=== PATIENT | female | born 1960 | race Caucasian/White ===

== ENCOUNTER → 2016-04-24 | Outpatient (CLI) | payer OTHER ==
[~2016-04-24] MED LIST: FERR325T; TAMO20TA; VICO5TAB; [UNRECOGNIZED DRUG - OTHER]
[2016-04-24 09:10] LABS: ALBUMIN 3.9 GM/DL (3.2-5.2); ALBUMIN/GLOBULIN RATIO 0.95 (1.00-1.93); ALKALINE PHOSPHATASE 118 U/L (45-117); ALT/SGPT 24 U/L (12-78); ANION GAP 7 MEQ/L (8-16); AST/SGOT 14 U/L (15-37); BILIRUBIN,TOTAL 0.5 MG/DL (0.2-1.0); BLOOD UREA NITROGEN 17 MG/DL (7-18); CALCIUM LEVEL 9.3 MG/DL (8.5-10.1); CARBON DIOXIDE LEVEL 30 MEQ/L (21-32); CHLORIDE LEVEL 106 MEQ/L (98-107); CHOLESTEROL LEVEL 179 MG/DL (<200); CREATININE FOR GFR 0.88 MG/DL (0.55-1.02); GLOMERULAR FILTRATION RATE > 60.0 (>51); GLUCOSE, FASTING 97 MG/DL (70-105); POTASSIUM SERUM 4.5 MEQ/L (3.5-5.1); SODIUM LEVEL 143 MEQ/L (136-145); TRIGLYCERIDES LEVEL 151 MG/DL (<150)
== END ==
LOC: M LAB 08:30
PROVIDERS: ATTEND Emergency Medicine
DX: I10 Essential (primary) hypertension (principal); E55.9 Vitamin D deficiency, unspecified

== ENCOUNTER → 2016-10-09 | Outpatient (REF) | payer OTHER | LOC: M LAB REF 16:36 | PROVIDERS: ATTEND Surgery | DX: D48.5 Neoplasm of uncertain behavior of skin (principal) ==

== ENCOUNTER → 2017-04-26 | Outpatient (CLI) | payer OTHER ==
[2017-04-26 13:40] LABS: ALBUMIN 4.2 GM/DL (3.2-5.2); ALBUMIN/GLOBULIN RATIO 1.02 (1.00-1.93); ALKALINE PHOSPHATASE 110 U/L (45-117); ALT/SGPT 35 U/L (12-78); ANION GAP 6 MEQ/L (8-16); AST/SGOT 22 U/L (7-37); BILIRUBIN,TOTAL 0.5 MG/DL (0.2-1.0); BLOOD UREA NITROGEN 15 MG/DL (7-18); CARBON DIOXIDE LEVEL 30 MEQ/L (21-32); CHLORIDE LEVEL 104 MEQ/L (98-107); CHOLESTEROL LEVEL 212 MG/DL (<200); CHOLESTEROL RISK RATIO 4.326 (<5); CREATININE FOR GFR 0.81 MG/DL (0.55-1.02); GLOMERULAR FILTRATION RATE > 60.0 (>51); GLUCOSE, FASTING 104 MG/DL (70-105); HDL CHOLESTEROL 49 MG/DL (>40); NON-HDL-C 163 MG/DL; POTASSIUM SERUM 4.2 MEQ/L (3.5-5.1); SODIUM LEVEL 140 MEQ/L (136-145); TOTAL PROTEIN 8.3 GM/DL (6.4-8.2); TRIGLYCERIDES LEVEL 165 MG/DL (<150)
[2017-04-26 13:44] LABS: TOTAL 25(OH) VITAMIN D 53.3 NG/ML (30.0-100.0)
== END ==
LOC: M SMT 09:24
DX: E55.9 Vitamin D deficiency, unspecified (principal); I10 Essential (primary) hypertension

== ENCOUNTER → 2018-04-28 | Outpatient (CLI) | payer OTHER ==
[2018-04-28 12:57] LABS: ALBUMIN 3.9 GM/DL (3.2-5.2); ALT/SGPT 28 U/L (12-78); BILIRUBIN,TOTAL 0.5 MG/DL (0.2-1.0); BLOOD UREA NITROGEN 13 MG/DL (7-18); CALCIUM LEVEL 9.3 MG/DL (8.5-10.1); CARBON DIOXIDE LEVEL 29 MEQ/L (21-32); CHLORIDE LEVEL 102 MEQ/L (98-107); CHOLESTEROL LEVEL 197 MG/DL (<200); CREATININE FOR GFR 0.84 MG/DL (0.55-1.30); GLOMERULAR FILTRATION RATE > 60.0 (>51); GLUCOSE, FASTING 99 MG/DL (70-100); HDL CHOLESTEROL 42 MG/DL (>40); LDL CHOLESTEROL 116 MG/DL (<100); NON-HDL-C 155 MG/DL; POTASSIUM SERUM 4.7 MEQ/L (3.5-5.1); SODIUM LEVEL 139 MEQ/L (136-145); TOTAL 25(OH) VITAMIN D 62.8 NG/ML (30.0-100.0); TOTAL PROTEIN 8.1 GM/DL (6.4-8.2); TRIGLYCERIDES LEVEL 193 MG/DL (<150)
== END ==
LOC: M LAB 09:18
PROVIDERS: ATTEND Emergency Medicine
DX: I10 Essential (primary) hypertension (principal); E55.9 Vitamin D deficiency, unspecified

== ENCOUNTER 2018-10-31 06:28 | Day surgery (SDC) | payer OTHER ==
[~2018-10-31] VITALS: Ht 172.7 cm; Wt 104.3 kg
[~2018-10-31 06:28] MED LIST changes: +CALTCHW5 PO; +LISI10TA2 PO; +MULTCAP PO; -TAMO20TA; +TAMO20TA44; +VITA50005 PO
[2018-10-31] MEDS ORDERED: NS 1,000 ML IV ONE (07:00)
[2018-10-31] MEDS ORDERED: PROPOFOL 500 MG/50 ML VIAL As Ordered ONE (07:35)
[2018-10-31] MEDS ORDERED: LIDOCAINE 2% INJ 100 MG/5 ML SDV (FOR ANES.) As Ordered ONE (07:35)
--- NOTE | 2018-10-31 07:55 | ROOR ---
Patient Name: Anh Levine Procedure Date: 10/31/2018 7:35 AM Date of : 1960 Age: 57 Room: [facility] Gender: Female Note Status: Finalized Procedure: Colonoscopy Indications: High risk colon cancer surveillance: Personal history of colonic polyps, Family history of colon cancer Providers: Edward ARVIZU MD Referring MD: BETY Pham Requesting Provider: Medicines: Monitored Anesthesia Care Complications: No immediate complications. Procedure: Pre-Anesthesia Assessment: - The heart rate, respiratory rate, oxygen saturations, blood pressure, adequacy of pulmonary ventilation, and response to care were monitored throughout the procedure. The Colonoscope was introduced through the anus and advanced to the cecum, identified by appendiceal orifice and ileocecal valve. The colonoscopy was somewhat difficult due to inadequate bowel prep. The patient tolerated the procedure well. The quality of the bowel preparation was poor. Findings: The perianal and digital rectal examinations were normal. A 4 mm polyp was found in the cecum. The polyp was sessile. The polyp was removed with a cold snare. Resection and retrieval were complete. (Colon Prep was POOR, Inadequate Visualisation) Impression: - (Colon Prep was POOR, Inadequate Visualisation) - One 4 mm polyp in the cecum, removed with a cold snare. Resected and retrieved. Recommendation: - Repeat colonoscopy at the next available appointment because the bowel preparation was suboptimal. - My office will call you within the next few days to reschedule a colonoscopy with alternate colon preparation. Edward Arvizu MD Edward ARVIZU MD 10/31/2018 7:55:17 AM Electronically signed by Edward ARVIZU MD Number of Addenda: 0 Note Initiated On: 10/31/2018 7:35 AM Estimated Blood Loss: Estimated blood loss: none.
[2018-10-31 08:11] VITALS: BP 163/89
[2018-10-31] MEDS ORDERED: EPINEPHrine INJ 1 MG/ML 1ML AMP As Ordered ONE (13:02)
[2018-10-31] MEDS ORDERED: ceFAZolin 1GM INJ (J0690 PER 500MG) As Ordered ONE (13:02)
== END 2018-10-31 08:11 | disposition home or self-care (01) ==
LOC: M OPP 06:28
PROVIDERS: ATTEND Internal Medicine Gastroenterology
DX: D12.0 Benign neoplasm of cecum (principal); Z79.899 Other long term (current) drug therapy; Z12.11 Encounter for screening for malignant neoplasm of colon; Z86.010 Personal history of colon polyps; Z80.0 Family history of malignant neoplasm of digestive organs
CPT/HCPCS: 45385; 88305; J0690

== ENCOUNTER 2019-02-24 07:12 | Day surgery (SDC) | payer OTHER ==
[~2019-02-24] VITALS: Ht 172.7 cm; Wt 98.4 kg
[~2019-02-24 07:12] MED LIST changes: +LISI10TA15 PO; -LISI10TA2 PO
[2019-02-24] MEDS ORDERED: NS 1,000 ML IV ONE (08:15)
[2019-02-24] MEDS ORDERED: PROPOFOL 200 MG/20 ML VIAL As Ordered ONE ×2 (09:28→09:50)
[2019-02-24] MEDS ORDERED: LIDOCAINE 2% INJ 100 MG/5 ML SDV (FOR ANES.) As Ordered ONE (09:28)
--- NOTE | 2019-02-24 09:59 | ROOR ---
Patient Name: Anh Levine Procedure Date: 02/24/2019 9:14 AM Date of : 1960 Age: 58 Room: [facility] Gender: Female Note Status: Finalized Procedure: Colonoscopy Indications: High risk colon cancer surveillance: Personal history of colonic polyps Providers: Edward ARVIZU MD Referring MD: BETY Lopez Requesting Provider: Medicines: Monitored Anesthesia Care Complications: No immediate complications. Procedure: Pre-Anesthesia Assessment: - The heart rate, respiratory rate, oxygen saturations, blood pressure, adequacy of pulmonary ventilation, and response to care were monitored throughout the procedure. The Colonoscope was introduced through the anus and advanced to the terminal ileum, with identification of the appendiceal orifice and IC valve. The colonoscopy was performed without difficulty. The patient tolerated the procedure well. The quality of the bowel preparation was good. Findings: The perianal and digital rectal examinations were normal. A 6 mm polyp was found in the rim of the appendiceal orifice. The polyp was flat. The polyp was removed with a piecemeal technique using a cold snare. Resection and retrieval were complete. The exam was otherwise without abnormality on direct and retroflexion views. Impression: - One 6 mm polyp at the rim of the appendiceal orifice, removed piecemeal using a cold snare. Resected and retrieved. - The examination was otherwise normal on direct and retroflexion views. Recommendation: - Repeat colonoscopy in 3 years for surveillance. (piecemeal/difficult location) Edward Arvizu MD Edward ARVIZU MD 02/24/2019 9:59:23 AM Electronically signed by Edward ARVIZU MD Number of Addenda: 0 Note Initiated On: 02/24/2019 9:14 AM Estimated Blood Loss: Estimated blood loss: none.
[2019-02-24 10:15] VITALS: BP 163/67
== END 2019-02-24 10:29 | disposition home or self-care (01) ==
LOC: M OPP 07:12
PROVIDERS: ATTEND Internal Medicine Gastroenterology
DX: Z12.11 Encounter for screening for malignant neoplasm of colon (principal); Z86.010 Personal history of colon polyps; Z80.0 Family history of malignant neoplasm of digestive organs; D12.1 Benign neoplasm of appendix; Z79.899 Other long term (current) drug therapy; Z85.3 Personal history of malignant neoplasm of breast; Z91.89 Other specified personal risk factors, not elsewhere classified; Z92.3 Personal history of irradiation

== ENCOUNTER → 2019-04-13 | Outpatient (CLI) | payer OTHER ==
[2019-04-13 10:57] LABS: BASO # 0.1 10^3/uL (0.0-0.2); BASO % 0.9 % (0.0-1.0); EOS # 0.2 10^3/uL (0.0-0.5); EOS % 2.6 % (0.0-3.0); HEMATOCRIT 41.6 % (36.0-47.0); HEMOGLOBIN 13.6 g/dl (12.0-15.5); LYMPH # 2.7 10^3/uL (1.5-5.0); MEAN CORPUSCULAR HEMOGLOBIN 29.2 pg (27.0-33.0); MEAN CORPUSCULAR HGB CONC 32.7 g/dl (32.0-36.5); MEAN CORPUSCULAR VOLUME 89.3 fl (80.0-96.0); MONO # 0.4 10^3/uL (0.0-0.8); MONO % 7.2 % (0.0-5.0); NEUTROPHILS # 2.4 10^3/uL (1.5-8.5); NEUTROPHILS % 42.1 % (36.0-66.0); PLATELET COUNT, AUTOMATED 338 10^3/uL (150-450); RED BLOOD COUNT 4.66 10^6/uL (4.00-5.40); WHITE BLOOD COUNT 5.7 10^3/uL (4.0-10.0)
[2019-04-13 11:20] LABS: HEMOGLOBIN A1c 6.1 %
[2019-04-13 11:40] LABS: ALBUMIN 3.9 GM/DL (3.2-5.2); ALT/SGPT 35 U/L (12-78); BILIRUBIN,TOTAL 0.4 MG/DL (0.2-1.0); BLOOD UREA NITROGEN 15 MG/DL (7-18); CALCIUM LEVEL 9.2 MG/DL (8.5-10.1); CARBON DIOXIDE LEVEL 25 MEQ/L (21-32); CHLORIDE LEVEL 104 MEQ/L (98-107); CHOLESTEROL LEVEL 189 MG/DL (<200); CHOLESTEROL RISK RATIO 4.395 (<5); CREATININE FOR GFR 0.78 MG/DL (0.55-1.30); FREE T4 0.97 NG/DL (0.76-1.46); GLOMERULAR FILTRATION RATE > 60.0 (>51); GLUCOSE, FASTING 89 MG/DL (70-100); HDL CHOLESTEROL 43 MG/DL (>40); LDL CHOLESTEROL 123 MG/DL (<100); NON-HDL-C 146 MG/DL; POTASSIUM SERUM 4.5 MEQ/L (3.5-5.1); SODIUM LEVEL 139 MEQ/L (136-145); TOTAL PROTEIN 7.9 GM/DL (6.4-8.2); TRIGLYCERIDES LEVEL 113 MG/DL (<150)
== END ==
LOC: M LAB 10:23
PROVIDERS: ATTEND Family Medicine
DX: Z13.220 Encounter for screening for lipoid disorders (principal); Z13.29 Encounter for screening for other suspected endocrine disorder

== ENCOUNTER → 2019-06-25 | Outpatient (CLI) | payer OTHER ==
[2019-06-25 08:43] LABS: ALBUMIN 4.2 GM/DL (3.2-5.2); ALT/SGPT 30 U/L (12-78); BILIRUBIN,TOTAL 0.4 MG/DL (0.2-1.0); BLOOD UREA NITROGEN 15 MG/DL (7-18); CALCIUM LEVEL 9.6 MG/DL (8.5-10.1); CARBON DIOXIDE LEVEL 29 MEQ/L (21-32); CHLORIDE LEVEL 104 MEQ/L (98-107); CHOLESTEROL LEVEL 188 MG/DL (<200); CHOLESTEROL RISK RATIO 4.476 (<5); GLOMERULAR FILTRATION RATE > 60.0 (>51); GLUCOSE, FASTING 97 MG/DL (70-100); HDL CHOLESTEROL 42 MG/DL (>40); LDL CHOLESTEROL 116 MG/DL (<100); NON-HDL-C 146 MG/DL; POTASSIUM SERUM 4.5 MEQ/L (3.5-5.1); SODIUM LEVEL 138 MEQ/L (136-145); TRIGLYCERIDES LEVEL 148 MG/DL (<150)
[2019-06-25 11:59] LABS: HEMOGLOBIN A1c 5.9 %
== END ==
LOC: M LAB 07:29
PROVIDERS: ATTEND Physician Assistant
DX: R73.03 Prediabetes (principal); Z13.220 Encounter for screening for lipoid disorders

== ENCOUNTER 2019-10-22 18:28 | Inpatient (IN) | payer OTHER ==
[~2019-10-22] VITALS: Ht 172.7 cm; Wt 99.5 kg
[2019-10-22] MEDS ORDERED: methylPREDNISolone INJ 125 MG/2 ML VIAL (J2930) IV ONE (19:15)
[2019-10-22] MEDS ORDERED: ACETAMINOPHEN 325 MG TAB PO ONE (19:15)
[2019-10-22] MEDS ORDERED: NS 1,000 ML IV ONE ×3 (19:15→20:15)
[2019-10-22] MEDS ORDERED: METOCLOPRAMIDE INJ 10MG/2ML VIAL (J2765 PER 1) IV ONE (19:15)
[2019-10-22 20:03] LABS: BASO % 0.2 % (0.0-1.0); EOS % 0.2 % (0.0-3.0); HEMATOCRIT 39.9 % (36.0-47.0); HEMOGLOBIN 13.6 g/dl (12.0-15.5); LYMPH # 0.6 10^3/uL (1.5-5.0); LYMPH % 3.5 % (24.0-44.0); MEAN CORPUSCULAR HEMOGLOBIN 29.2 pg (27.0-33.0); MEAN CORPUSCULAR HGB CONC 34.1 g/dl (32.0-36.5); MEAN CORPUSCULAR VOLUME 85.8 fl (80.0-96.0); MONO # 0.4 10^3/uL (0.0-0.8); MONO % 2.3 % (0.0-5.0); NEUTROPHILS # 16.4 10^3/uL (1.5-8.5); PLATELET COUNT, AUTOMATED 309 10^3/uL (150-450); RED BLOOD COUNT 4.65 10^6/uL (4.00-5.40); WHITE BLOOD COUNT 17.6 10^3/uL (4.0-10.0)
--- NOTE | 2019-10-22 20:04 | REP ---
Clinical: Sepsis/shock . Comparison: 08/11/2008 Findings: The mediastinum and cardiac silhouette are stable and within normal limits for portable technique. The lung nagy are clear without acute consolidation, effusion, or pneumothorax. Skeletal structures are intact. Impression: No acute cardiopulmonary process appreciated. Electronically Signed by Germán Jeffries MD 10/22/2019 07:56 P
[2019-10-22 20:25] LABS: INR 1.07; PARTIAL THROMBOPLASTIN TIME 27.7 SECONDS (25.0-38.4); PROTHROMBIN TIME 13.6 SECONDS (11.8-14.0)
[2019-10-22 20:26] LABS: ALBUMIN 3.7 GM/DL (3.2-5.2); ALT/SGPT 41 U/L (12-78); AMYLASE 25 U/L (25-115); BILIRUBIN,DIRECT < 0.1 MG/DL (0.0-0.2); BILIRUBIN,TOTAL 0.8 MG/DL (0.2-1.0); BLOOD UREA NITROGEN 15 MG/DL (7-18); C REACTIVE PROTEIN QUANTITATIV 2.42 MG/DL (0.00-0.30); CALCIUM LEVEL 9.6 MG/DL (8.5-10.1); CARBON DIOXIDE LEVEL 23 MEQ/L (21-32); CHLORIDE LEVEL 101 MEQ/L (98-107); CREATININE FOR GFR 1.02 MG/DL (0.55-1.30); GLUCOSE, FASTING 114 MG/DL (70-100); SODIUM LEVEL 136 MEQ/L (136-145); TOTAL PROTEIN 7.9 GM/DL (6.4-8.2)
[2019-10-22] MEDS ORDERED: PIPERACILLIN/TAZOBACTAM SOD 3.375 GM in D5W MINI-BAG PLUS 50 ML IV ONE (20:45)
[2019-10-22] MEDS ORDERED: MAALOX 30 ML SUSP *UDC PO PRN (21:00)
[2019-10-22] MEDS ORDERED: MOM 30ML SUSPENSION UDC PO PRN (21:00)
--- NOTE | 2019-10-22 21:02 | HPEPDOC ---
[facility] Medical History & Physical Date of Admission Oct 22, 2019 Date of Service: Oct 22, 2019 Primary Care Physician: MERT SERNA PA-C Attending Physician: EDIN PARADA MD History and Physical TIME OF SERVICE: 9:10 PM CHIEF COMPLAINT: Rash, headache, soreness HISTORY OF PRESENT ILLNESS: This is a 58-year-old female who presents with complaints of a headache and neck soreness that began this afternoon; shortly thereafter she really developed rash at the right upper arm, the back of her neck, and her upper chest. She thought it was shingles which she's had in the past, so she decided come to the hospital for evaluation. She denies being out in the sun, using new skin care products, new laundry detergents or eating new foods. She also denies sweating profusely, denies having nausea or vomiting, denies having diarrhea, eyes, having chest pain,, denies having shortness of breath, denies having abdominal pain, denies having pain with urination, and denies having back pain or joint pain. She does admit to feeling weak and having chills. REVIEW OF SYSTEMS: 12 point review of systems negative except as listed in HPI PAST MEDICAL/ SURGICAL HISTORY: History of ER positive, HER-2/gary positive stage III breast cancer, status post double mastectomy; she completed neoadjuvant tamoxifen and anastrozole and Herceptin Chronic hypertension Shingles in April 2019 History of dysfunctional uterine bleeding and ovarian cyst, status post total laparoscopic hysterectomy and BSO She denies being diabetic SOCIAL HISTORY: She doesn't smoke, drink alcohol or use recreational drugs FAMILY HISTORY: Leukemia Esophageal cancer Breast cancer Thyroid cancer Prostate cancer CVD Chronic HTN ALLERGIES: Please see below. HOME MEDICATIONS: Please see below. PHYSICAL EXAMINATION: Vital Signs Date Time Temp Pulse Resp B/P (MAP) Pulse Ox O2 Delivery O2 Flow Rate FiO2 10/22/19 18:28 100.3 138 16 129/91 (104) 95 Room Air GEN: well-nourished / well developed/ NAD INTEGUMENT: Her face is slightly flushed, there is redness extending around the perimeter of the neck/she has slightly raised, warm, large red patches on the right upper arm and the right upper chest HEENT: NCAT CVS: Tachycardic/NMRG/ no lower extremity edema LUNGS: able to speak full sentences without stopping to take a breath / lungs are clear to auscultation bilaterally on room air ABDOMEN: Contour ( obese) MSK/EXTREMITIES: range of motion intact in all 4 extremities NEURO: CN 2-12 are grossly intact / speech is not dysarthric PSYCH: alert and oriented to person place and time/ able to understand and follow all commands LABORATORY DATA: 10/22/19 19:15 Immature Granulocyte % (Auto) 0.8, Neutrophils (%) (Auto) 93.0H, Lymphocytes (%) (Auto) 3.5L, Monocytes (%) (Auto) 2.3, Eosinophils (%) (Auto) 0.2, Basophils (%) (Auto) 0.2, Neutrophils # (Auto) 16.4H, Lymphocytes # (Auto) 0.6L, Monocytes # (Auto) 0.4, Eosinophils # (Auto) 0.0, Basophils # (Auto) 0.0, Nucleated Red Blood Cells % (auto) 0.0, Prothrombin Time 13.6, Prothromb Time International Ratio 1.07, Activated Partial Thromboplast Time 27.7, Anion Gap 12, Glomerular Filtration Rate 59.0, Lactic Acid Level 2.8*H, Calcium Level 9.6, Total Bilirubin 0.8, Direct Bilirubin < 0.1, Aspartate Amino Transf (AST/SGOT) 58H, Alanine Aminotransferase (ALT/SGPT) 41, Alkaline Phosphatase 111, C-Reactive Protein, Quantitative 2.42H, Total Protein 7.9, Albumin 3.7, Albumin/Globulin Ratio 0.9L, Amylase Level 25 IMAGING: Chest xray "Impression: No acute cardiopulmonary process appreciated." MICROBIOLOGY: 10/22/19 Blood Culture, Received Pending Respiratory panel pending ASSESSMENT: Ms. Levine is a 58-year-old with a history of hypertension and breast cancer in remission. Will be admitted for evaluation of SIRS associated with headache and rash of unclear cause. PLAN: 1. Rash The rashs is on right upper arm, upper chest and around her neck. The patient thinks that this looks like shingles, but the distribution is not in one specific dermatome. Its less likey DRESS syndrome bc she doesn't have eosinophilia Plan: Admit to PCU / will ask the day time team to consult Dermatology 2. SIRS We don't have a source of infection, but I suspect that this may be related to the rash. SIRS Criteria include: HR >90 / WBC >12 / RR > 20 The lactic acid & CRP are elevated She has non diabetic hyperglycemia She received zosyn and IVF in the ER Plan: initiate Sepsis protocol / trend lactic/ will hold off giving abx until we have a definitive source of infection / c/w IVF /f/u blood cx, UA w Cx, respiratory panel, procalcitonin, VBG, fibrinogen/ Acetaminophen PRN for fever / target MAP at least 65 to 70 / f/u Is and Os with target UOP of at least 0.5 ml/kg/H / target serum glucose 140-180 while acutely ill 3. Headache, neck pain Plan: acetaminophen PRN / pending UA, respiratory panel and blood cx results if KELLY persists will consider LP 4. Mild Transaminitis Possibly 2/2 fatty liver Plan: trend LFTs / f/u Hep panel 5. Chronic hypertension Plan: c/w lisinopril 10 mg daily / switch HTCZ for amlodpine 2.5mg daily 6. Obesity BMI 33.4 complicates care Plan: f/u A1C / the pt can f/u w his or her PCP for STOP BANG questionnaire & area director of home health sales consult / recommend cardiovascular exercise for 40 min 4-5 days a week DVT PROPHYLAXIS: Lovenox DISPOSITION: home after at least 2 midnight's stay Home Medications Scheduled Ergocalciferol (Vitamin D2) (Vitamin D2) 50,000 Unit Cap, 50,000 UNIT PO QWEEK TUES Lisinopril/Hydrochlorothiazide (Lisinopril-Hctz 10-12.5 mg Tab) 1 Tab Tab, 1 TAB PO DAILY Multivitamin (Multivitamins) 1 Cap Cap, 1 CAP PO DAILY Allergies Coded Allergies: No Known Allergies (Unverified , 08/19/18) EDIN PARADA MD Oct 22, 2019 21:02
[2019-10-22 21:19] LABS: APPEARANCE, URINE CLEAR (CLEAR); BACTERIA, URINE AUTO NEGATIVE (NEGATIVE); BILIRUBIN, URINE AUTO NEGATIVE (NEGATIVE); BLOOD, URINE BLOOD 1+ (NEGATIVE); COLOR, URINE YELLOW (YELLOW); GLUCOSE, URINE (UA) AUTO NEGATIVE (NEGATIVE); KETONE, URINE AUTO NEGATIVE (NEGATIVE); LEUKOCYTE ESTERASE, URINE AUTO TRACE (NEGATIVE); NITRITE, URINE AUTO NEGATIVE (NEGATIVE); PROTEIN, URINE AUTO NEGATIVE (NEGATIVE); RBC, URINE AUTO 3 /HPF (0-3); SPECIFIC GRAVITY URINE AUTO 1.013 (1.002-1.035); SQUAMOUS EPITHELIAL CELL UR AU 1 /HPF (0-6); UROBILINOGEN, URINE AUTO 0.2 mg/dL (0.0-2.0); WBC, URINE AUTO 3 /HPF (0-3)
[2019-10-22 21:50] LABS: HEMOGLOBIN A1c 6.3 %
[2019-10-22] MEDS ORDERED: CALTTAB6 PO (22:47)
[2019-10-22] MEDS ORDERED: VITMTA PO (22:47)
[2019-10-22 22:54] VITALS: BP 138/58
[2019-10-22] MEDS: LR 1,000 ML IV SCH (23:29)
[2019-10-23 00:09] LABS: VENOUS BASE EXCESS -2.8 (-2.0-2.0); VENOUS HCO3 20.2 MEQ/L (23.0-27.0); VENOUS O2 SATURATION 99.4 % (60.0-80.0); VENOUS PARTIAL PRESSURE CO2 30.1 mmHg (38.0-50.0); VENOUS PARTIAL PRESSURE O2 164.4 mmHg (30.0-50.0); VENOUS PH 7.444 UNITS (7.330-7.430); VENOUS STANDARD HCO3 22.2 MEQ/L; VENOUS TOTAL CO2 21.1 MEQ/L (24.0-28.0)
--- NOTE | 2019-10-23 00:53 | ECGEPIP ---
[facility] - ED Test Date: 2019-10-22 Pat Name: MALIK WEST Department: Room: - Gender: Female [employer] Det[employer] Operator: : 1960 Requested By: AMY BENNETT Order Number: [id number] Reading MD: Edward Bucio Measurements Intervals [place] Rate: 107 P: 55 VT: 178 QRS: 12 QRSD: 80 T: 16 QT: 312 QTc: 418 Interpretive Statements SINUS TACHYCARDIA Comparison tracing not on file Electronically Signed on 10-23-2019 0:53:09 EDT by Edward Bucio
[2019-10-23 04:00] VITALS: BP_SYST 130; BP_SYST 132; BP_SYST 140; BP_SYST 154; BP_DIAS 60; BP_DIAS 66; BP_DIAS 72
[2019-10-23 04:09] LABS: HEMATOCRIT 36.7 % (36.0-47.0); HEMOGLOBIN 12.3 g/dl (12.0-15.5); MEAN CORPUSCULAR HEMOGLOBIN 28.9 pg (27.0-33.0); MEAN CORPUSCULAR HGB CONC 33.5 g/dl (32.0-36.5); MEAN CORPUSCULAR VOLUME 86.4 fl (80.0-96.0); PLATELET COUNT, AUTOMATED 310 10^3/uL (150-450); RED BLOOD COUNT 4.25 10^6/uL (4.00-5.40); WHITE BLOOD COUNT 25.2 10^3/uL (4.0-10.0)
[2019-10-23 04:45] LABS: ALBUMIN 3.1 GM/DL (3.2-5.2); ALT/SGPT 39 U/L (12-78); BILIRUBIN,TOTAL 0.7 MG/DL (0.2-1.0); BLOOD UREA NITROGEN 13 MG/DL (7-18); CALCIUM LEVEL 8.9 MG/DL (8.5-10.1); CARBON DIOXIDE LEVEL 23 MEQ/L (21-32); CHLORIDE LEVEL 108 MEQ/L (98-107); GLOMERULAR FILTRATION RATE > 60.0 (>51); GLUCOSE, FASTING 189 MG/DL (70-100); MAGNESIUM LEVEL 1.7 MG/DL (1.8-2.4); POTASSIUM SERUM 3.6 MEQ/L (3.5-5.1); SODIUM LEVEL 137 MEQ/L (136-145); TOTAL PROTEIN 6.9 GM/DL (6.4-8.2)
[2019-10-23 08:00] VITALS: BP 128/64
[2019-10-23] MEDS ORDERED: MAG SULF 1GM/100ML (MAG RUN) 1 GM in IV 1 EA IV ONE (08:00)
[2019-10-23 08:18] LABS: HEPATITIS B SURFACE ANTIGEN NEGATIVE (NEGATIVE)
[2019-10-23] MEDS: ENOXAPARIN 40MG/0.4ML SYRINGE (J1650 PER 10MG) SC SCH (08:28)
[2019-10-23] MEDS: lisinopriL 10 MG TAB PO SCH (08:30)
[2019-10-23 08:46] LABS: HEPATITIS B CORE ANTIBODY IGM NEGATIVE (NEGATIVE); HEPATITIS C VIRUS ABY INDEX 0.1 INDEX (<0.8)
[2019-10-23 08:48] LABS: HEPATITIS A ANTIBODY IGM NEGATIVE (NEGATIVE)
[2019-10-23 12:00] VITALS: BP 132/59
[2019-10-23] MEDS: diphenhydrAMINE 25MG CAP PO SCH ×3 (12:12→23:31)
--- NOTE | 2019-10-23 13:14 | IPNPDOC ---
Text Note Date of Service The patient was seen on 10/23/19. NOTE Ms. Levine was seen today at bedside and reported minimal improvement in her sy mptoms overnight. She states that her rash seems to have spread distally on her R arm but otherwise has not changed. She states that she still fells fatigued, with a achy pain down her entire R arm where the rash is present. She rates the pain at a 5/10. She is still eating well and has been able to have a bowel movement and urinate since her admission with no problems. Physical Exam: Vitals: See Below General: Obese women laying in bed in moderate distress HEENT: Diffuse erythematous rash noted throughout face with periorbital sparing. No sparing of the NL folds. Good dentition, no lymphadenopathy, EOMI Respiratory: Lungs CTA B/L with no wheezing, rales or rhonchi CV: RRR with no murmurs, rubs, gallops. +S1 and S2 noted. No JVD noted Abdomen: Obese abdomen. Soft and nontender. No organomegaly or abdominal briuising noted Skin: Diffuse flat, maculopapular rash noted on face, R arm, R torso, and R shoulder with areas of widespread confluence and scattered pustules. Extremities: R arm with rash as noted previously. Palpable and equal pulses in all 4 extremities. No edema noted in LE B/L. Capillary refill <3 s. Assessment and Plan: This is a 58 year old female with a pmhx significant for Stage 3 brease cancer in remission s/p double mastectomy with adjuvent chemotherapy and radiation treatments ending in 2014 who presents with acute onset lethargy and fatigue, body aches, R arm and nexk swelling and diffuse maculopapular rash on her face, right arm and right torso and was found to have leukocytosis with neutrophilia, elevated CRP, and negative respiratory virus panel, CXR, and U/A. #Maculopapular rash on face, right arm, and right torso -Discussed case with dermatology who suspects systemic contact dermatitis due to lack of infection source or symptoms -Start Hydrocortisone ointment 2.5% BID on face -Start Triamcinolone ointment 0.1% BID on on torso -F/U with dermatology outpatient 2-4 after discharge #SIRS: -WBC>12 and HR>90 -Lacate is trending down -Respiratory panel, UA, CXR negative for signs of infection -Blood cultures and procalcitonin pending #Headache, neck pain: -Patient no longer is experiencing these symptoms, likely due to local inflammation #Mild Transaminitis: -AST 58 -Possibly due to systemic inflammation or fatty liver disease -Negative hepatitis panel and no hepatosplenomegaly #Chronic HTN: -Continue Lisinopril 10 mg QD PO -Continue Amlodipine 2.5 QHS PO #Obesity: -BMI 33.5 which may complicate care -F/U in outpatient setting to discuss lifestyle management #DVT prophylaxis: -Enoxaparin Sodium 40 mg QD SC VS,Fishbone, I+O VS, Fishbone, I+O Laboratory Tests 10/22/19 19:15 10/23/19 03:57 Vital Signs Date Time Temp Pulse Resp B/P (MAP) Pulse Ox O2 Delivery O2 Flow Rate FiO2 10/23/19 08:30 129/63 10/23/19 08:00 99.0 93 16 97 Room Air I&O- Last 24 Hours up to 6 AM 10/23/19 06:00 Intake Total 3350 ml Output Total 1925 ml Balance 1425 ml GME ATTESTATION GME ATTESTATION My faculty preceptor for this patient encounter was physically present during the encounter and was fully available. All aspects of the patient interview, examination, medical decision making process, and medical care plan development were reviewed and approved by the faculty preceptor. The faculty preceptor is aware and concurs with the plan as stated in the body of this note and will attest to such by his/her cosignature. ATTENDING NOTE Patient was seen and examined by me. With the above assessment and plan GME ATTESTATION GME ATTESTATION My faculty preceptor for this patient encounter was physically present during the encounter and was fully available. All aspects of the patient interview, examination, medical decision making process, and medical care plan development were reviewed and approved by the faculty preceptor. The faculty preceptor is aware and concurs with the plan as stated in the body of this note and will attest to such by his/her cosignature. OUMAR WHITTEN OMS-3 Oct 23, 2019 13:14 SUZETTE REECE MD Oct 23, 2019 16:03
[2019-10-23] MEDS: TRIAMCINOLONE ACET 0.1% OINTMENT 15 GM TOP SCH ×2 (14:00→20:25)
[2019-10-23] MEDS: HYDROCORTISONE 2.5% 20GM OINTMENT TOP SCH ×2 (14:00→20:24)
[2019-10-23 16:00] VITALS: BP 113/57
[2019-10-23] MEDS: LR 1,000 ML IV SCH (17:13)
[2019-10-23 20:00] VITALS: BP 134/68
[2019-10-23] MEDS: ACETAMINOPHEN TAB 650MG DOSE (2X325MG) PO PRN (23:32)
[2019-10-24] VITALS: BP 154/72
[2019-10-24 04:00] VITALS: BP 138/74
[2019-10-24 06:02] LABS: BASO % 0.2 % (0.0-1.0); EOS % 0.3 % (0.0-3.0); HEMATOCRIT 35.3 % (36.0-47.0); HEMOGLOBIN 11.8 g/dl (12.0-15.5); LYMPH # 1.7 10^3/uL (1.5-5.0); LYMPH % 12.3 % (24.0-44.0); MEAN CORPUSCULAR HEMOGLOBIN 29.1 pg (27.0-33.0); MEAN CORPUSCULAR HGB CONC 33.4 g/dl (32.0-36.5); MEAN CORPUSCULAR VOLUME 87.2 fl (80.0-96.0); MONO # 0.5 10^3/uL (0.0-0.8); MONO % 3.9 % (0.0-5.0); NEUTROPHILS # 11.4 10^3/uL (1.5-8.5); NEUTROPHILS % 82.7 % (36.0-66.0); PLATELET COUNT, AUTOMATED 273 10^3/uL (150-450); RED BLOOD COUNT 4.05 10^6/uL (4.00-5.40); WHITE BLOOD COUNT 13.7 10^3/uL (4.0-10.0)
[2019-10-24] MEDS: diphenhydrAMINE 25MG CAP PO SCH (06:04)
[2019-10-24 06:28] LABS: ALBUMIN 2.7 GM/DL (3.2-5.2); ALT/SGPT 39 U/L (12-78); BILIRUBIN,TOTAL 0.4 MG/DL (0.2-1.0); BLOOD UREA NITROGEN 11 MG/DL (7-18); CALCIUM LEVEL 8.5 MG/DL (8.5-10.1); CARBON DIOXIDE LEVEL 24 MEQ/L (21-32); CHLORIDE LEVEL 108 MEQ/L (98-107); CREATININE FOR GFR 0.72 MG/DL (0.55-1.30); GLOMERULAR FILTRATION RATE > 60.0 (>51); GLUCOSE, FASTING 98 MG/DL (70-100); POTASSIUM SERUM 3.8 MEQ/L (3.5-5.1); SODIUM LEVEL 140 MEQ/L (136-145); TOTAL PROTEIN 6.3 GM/DL (6.4-8.2)
[2019-10-24] MEDS: LR 1,000 ML IV SCH (06:35)
[2019-10-24 07:28] LABS: MAGNESIUM LEVEL 2.1 MG/DL (1.8-2.4)
[2019-10-24 08:00] VITALS: BP 142/87
[2019-10-24] MEDS: ENOXAPARIN 40MG/0.4ML SYRINGE (J1650 PER 10MG) SC SCH (08:25)
[2019-10-24] MEDS: lisinopriL 10 MG TAB PO SCH (08:25)
[2019-10-24] MEDS: HYDROCORTISONE 2.5% 20GM OINTMENT TOP SCH ×2 (08:26→20:28)
[2019-10-24] MEDS: TRIAMCINOLONE ACET 0.1% OINTMENT 15 GM TOP SCH ×2 (08:27→20:28)
[2019-10-24] MEDS ORDERED: predniSONE 20 MG TAB PO SCH (09:00)
[2019-10-24 10:06] VITALS: BP 135/74
--- NOTE | 2019-10-24 10:37 | IPNPDOC ---
Text Note Date of Service The patient was seen on 10/24/19. NOTE SUBJECTIVE: Patient was seen and examined today, lying comfortably in bed. She feels her rash has not improved at all. She also feels the swelling in her right upper arm is worse today. She states she has been trying to move her shoulder every now and then to help with circulation. She continues to feel fatigued. She has had no trouble eating or shortness of breath. No fevers. OBJECTIVE: VITAL SIGNS: See below GENERAL: Alert, comfortable, in no acute distress HEENT: Normocephalic, atraumatic, sclerae anicteric moist mucous membranes NECK: Supple, trachea midline, no lymphadenopathy, no JVD, swelling on the right side compared to the left CARDIOVASCULAR: Regular rate and rhythm, normal S1 and S2. No murmurs, rubs, or gallops RESPIRATORY: Clear to auscultation bilaterally with equal air entry bilaterally. No wheezing, rhonchi, or rales. ABDOMEN: Soft, nontender, nondistended, bowel sounds present EXTREMITIES: Nonpitting edema in the right upper extremity. Pulses 2+/4 in bilateral upper and lower extremities SKIN: Diffuse, flat maculopapular rash noted on the face, right arm, right torso and right shoulder with scattered pustules and areas of widespread confluence, appears somewhat improved on the face, the arm and trunk appears stable from yesterday. NEUROLOGIC: Alert and oriented x3 to person, place and time. No focal deficits appreciated PSYCHIATRIC: Mood and affect appropriate ASSESSMENT/PLAN: #Negative hyper rash on the face, right arm and right torso. Case has been discussed with dermatology who suspect systemic contact dermatitis Continue hydrocortisone ointment on the face and triamcinolone ointment on the arm and torso. Discontinued Benadryl and initiating prednisone therapy today. She had a similar episode back in April 2019, which was treated effectively with steroids and Valtrex. This does not appear to be shingles, so we will not use Valtrex at this time. Ordered right upper extremity duplex ultrasound due to the increased swelling of the right arm #Mild transaminitis. Resolved, could be related to systemic inflammation versus fatty liver disease. Negative hepatitis panel # Chronic hypertension. Continue home lisinopril and amlodipine. DVT prophylaxis: SC Lovenox Disposition: Pending clinical improvement of rash, will likely return home when clinically stable. VS,Felipe, I+O VS, Fishbone, I+O Laboratory Tests 10/24/19 05:35 Vital Signs Date Time Temp Pulse Resp B/P (MAP) Pulse Ox O2 Delivery O2 Flow Rate FiO2 10/24/19 08:25 142/87 10/24/19 08:00 98.6 57 16 95 Room Air I&O- Last 24 Hours up to 6 AM 10/24/19 06:00 Intake Total 3140 ml Output Total 2550 ml Balance 590 ml GME ATTESTATION GME ATTESTATION My faculty preceptor for this patient encounter was physically present during the encounter and was fully available. All aspects of the patient interview, examination, medical decision making process, and medical care plan development were reviewed and approved by the faculty preceptor. The faculty preceptor is aware and concurs with the plan as stated in the body of this note and will attest to such by his/her cosignature. ATTENDING NOTE Patient was seen and examined. He did agree with the above assessment and plan. She is doing fine, but has not had significant improvement since yesterday. They spoke with transit authority police officer as well and as per them. Also, it looks like contact dermatitis. In my opinion, this is not a zoster given the distribution and no particular symptoms of it. Also, there is no crusting or any vesicles. She is not been started on Valtrex but small dose of steroids will be started at 20 mg because it had helped her in the past. Her right upper extremity edema is related to her mastectomy, but we will still get venous Doppler done. Will follow through tomorrow and likely she would be discharged home if there isn't improvement in her rash in the next 24-48 hours. Rest. All of the management as per documentation by the resident. MARCE FRANCO D.O. Oct 24, 2019 10:37 SUZETTE REECE MD Oct 24, 2019 13:22
--- NOTE | 2019-10-24 13:32 | REP ---
Clinical: Right upper extremity edema . Technique: Kim scale and color Doppler evaluation right upper extremity using linear high frequency transducer. Findings: Ultrasound examination of the right upper extremity deep venous structures demonstrate normal flow patterns. There is no evidence for deep venous thrombosis. Impression: No evidence for deep venous thrombosis right upper extremity. Electronically Signed by Germán Jeffries MD 10/24/2019 01:23 P
[2019-10-24 14:00] VITALS: BP 138/76
[2019-10-24] MEDS: ACETAMINOPHEN TAB 650MG DOSE (2X325MG) PO PRN (20:28)
[2019-10-24 22:00] VITALS: BP 138/80
[2019-10-25 06:00] VITALS: BP 173/95
[2019-10-25 07:46] LABS: BASO % 0.2 % (0.0-1.0); EOS # 0.1 10^3/uL (0.0-0.5); EOS % 1.3 % (0.0-3.0); HEMATOCRIT 35.3 % (36.0-47.0); HEMOGLOBIN 11.5 g/dl (12.0-15.5); LYMPH # 3.2 10^3/uL (1.5-5.0); LYMPH % 28.9 % (24.0-44.0); MEAN CORPUSCULAR HEMOGLOBIN 28.7 pg (27.0-33.0); MEAN CORPUSCULAR HGB CONC 32.6 g/dl (32.0-36.5); MONO # 0.7 10^3/uL (0.0-0.8); MONO % 6.3 % (0.0-5.0); NEUTROPHILS # 6.9 10^3/uL (1.5-8.5); NEUTROPHILS % 62.8 % (36.0-66.0); PLATELET COUNT, AUTOMATED 301 10^3/uL (150-450); RED BLOOD COUNT 4.01 10^6/uL (4.00-5.40)
[2019-10-25] MEDS: lisinopriL 10 MG TAB PO SCH (08:11)
[2019-10-25] MEDS: ENOXAPARIN 40MG/0.4ML SYRINGE (J1650 PER 10MG) SC SCH (08:13)
[2019-10-25] MEDS: predniSONE 20 MG TAB PO SCH (08:13)
[2019-10-25 08:14] LABS: ALBUMIN 2.9 GM/DL (3.2-5.2); ALT/SGPT 71 U/L (12-78); BILIRUBIN,TOTAL 0.4 MG/DL (0.2-1.0); BLOOD UREA NITROGEN 12 MG/DL (7-18); CARBON DIOXIDE LEVEL 26 MEQ/L (21-32); CHLORIDE LEVEL 107 MEQ/L (98-107); CREATININE FOR GFR 0.67 MG/DL (0.55-1.30); GLOMERULAR FILTRATION RATE > 60.0 (>51); GLUCOSE, FASTING 90 MG/DL (70-100); POTASSIUM SERUM 3.7 MEQ/L (3.5-5.1); SODIUM LEVEL 138 MEQ/L (136-145)
[2019-10-25] MEDS: TRIAMCINOLONE ACET 0.1% OINTMENT 15 GM TOP SCH ×2 (08:14→20:34)
[2019-10-25] MEDS: HYDROCORTISONE 2.5% 20GM OINTMENT TOP SCH ×2 (08:14→20:34)
--- NOTE | 2019-10-25 10:46 | IPNPDOC ---
Subjective Date Seen The patient was seen on 10/25/19. Subjective Chief Complaint/HPI Ms. Levine doesn't feel she has gotten much better and she really wants me to know that Valtrex helped this the last time it happened. Then she again says that she her arm circumferences a little smaller than it was yesterday. She attributes this to the prednisone. Nursing reports that they feel the erythema is basically the same as it was; it has not receded much at all from the marked lines. General: Reports: Normal Appetite Constitutional: Denies: Chills, Fever Skin: Reports: Rash Pulmonary: Denies: Dyspnea, Cough Cardiovascular: Denies: Chest Pain, Palpitations Psych: Reports: Mood Normal Objective Physical Examination General Exam: Positive: Alert (sitting at the side of her bed when I enter the room), Cooperative, No Acute Distress Eye Exam: Positive: Conjunctiva & lids normal; Negative: Sclera icteric ENT Exam: Positive: Mucous membr. moist/pink Neck Exam: Negative: Lymphadenopathy Chest Exam: Positive: Clear to auscultation, Normal air movement Heart Exam: Positive: Rate Normal, Normal S1, Normal S2; Negative: Murmurs Abdomen Exam: Positive: Normal bowel sounds, Soft; Negative: Tenderness Extremity Exam: Negative: Edema Skin Exam: Positive: Rash (the marked area of redness and warmth on her right arm, right upper back, and right chest wall appeared to be basically the same as they were when they were originally marked. At this point there are large plaques with a suggestion for some small vesicles that appear to have been part of the confluence. The erythematous area is mildly warm to the touch. There is no bari discharge or bleeding.) Psych Exam: Positive: Mood NL, Oriented x 3 Assessment /Plan Problems (1) Vesicular rash Status: Acute Response to Treatment: Uncontrolled Discussed With: Nurse, Patient Problem Specific Plan: Monitor Clinically Problem Text: She was started on prednisone yesterday, but does not seem to make much improvement yet. She is convinced that the resolution to her problem is Valtrex. I explained that developed I were to work with this type of rash, it would have to be shingles and the rash he has does not meet a cardinal characteristics of shingles (dermatomal distribution, etc.). Nonetheless, she very much would like to try Valtrex because it was so effective in the past. There is little chance the Valtrex will harm her, and therefore I agreed to try it overnight. If she is getting benefit we can continue it, otherwise we should discontinue this medication. If this happens, we should formally consult dermatology. I will also start tracking her CRP, to get a better idea of the extent and trend of her inflammation. (2) Hypertension Status: Chronic Problem Specific Plan: Monitor Clinically Problem Text: Her blood pressures are running a little high today. She is also reasonably agitated about still being here. I'm not going to change her regimen at this time, however, if her values are persistently elevated we'll need to adjust her blood pressure medication. Plan/VTE VTE Prophylaxis Ordered?: Yes (Lovenox) VS, I&O, 24H, Fishbone Vital Signs/I&O Vital Signs Date Time Temp Pulse Resp B/P (MAP) Pulse Ox O2 Delivery O2 Flow Rate FiO2 10/25/19 06:00 98.1 76 18 173/95 (121) 97 Room Air I&O- Last 24 Hours up to 6 AM 10/25/19 06:00 Intake Total 3790 ml Output Total 4900 ml Balance -1110 ml Laboratory Data 24H LABS Laboratory Tests 2 10/25/19 07:13: Immature Granulocyte % (Auto) 0.5, Neutrophils (%) (Auto) 62.8, Lymphocytes (%) (Auto) 28.9, Monocytes (%) (Auto) 6.3H, Eosinophils (%) (Auto) 1.3, Basophils (%) (Auto) 0.2, Neutrophils # (Auto) 6.9, Lymphocytes # (Auto) 3.2, Monocytes # (Auto) 0.7, Eosinophils # (Auto) 0.1, Basophils # (Auto) 0.0, Nucleated Red Blood Cells % (auto) 0.0, Anion Gap 5L, Glomerular Filtration Rate > 60.0, Calcium Level 9.0, Total Bilirubin 0.4, Aspartate Amino Transf (AST/SGOT) 52H, Alanine Aminotransferase (ALT/SGPT) 71, Alkaline Phosphatase 114, Total Protein 7.0, Albumin 2.9L, Albumin/Globulin Ratio 0.7L CBC/BMP Laboratory Tests 10/25/19 07:13 Microbiology Microbiology 10/22/19 Respiratory Virus Panel (PCR) ([facility]) - Final, Complete 10/22/19 Blood Culture - Preliminary, Resulted No Growth after 48 hours. All Specime... 10/22/19 Blood Culture - Preliminary, Resulted No Growth after 48 hours. All Specime... Willem Polanco MD Oct 25, 2019 10:46
[2019-10-25] MEDS: valACYclovir HCL 500 MG TAB PO SCH ×2 (15:39→20:34)
[2019-10-25 22:00] VITALS: BP 159/96
[2019-10-26 06:00] VITALS: BP 152/82
[2019-10-26 06:58] LABS: BASO # 0.1 10^3/uL (0.0-0.2); BASO % 0.6 % (0.0-1.0); EOS # 0.2 10^3/uL (0.0-0.5); EOS % 1.9 % (0.0-3.0); HEMATOCRIT 35.8 % (36.0-47.0); HEMOGLOBIN 12.1 g/dl (12.0-15.5); LYMPH # 3.4 10^3/uL (1.5-5.0); MEAN CORPUSCULAR HEMOGLOBIN 29.3 pg (27.0-33.0); MEAN CORPUSCULAR HGB CONC 33.8 g/dl (32.0-36.5); MEAN CORPUSCULAR VOLUME 86.7 fl (80.0-96.0); MONO # 0.6 10^3/uL (0.0-0.8); MONO % 6.7 % (0.0-5.0); NEUTROPHILS # 4.5 10^3/uL (1.5-8.5); NEUTROPHILS % 50.9 % (36.0-66.0); PLATELET COUNT, AUTOMATED 364 10^3/uL (150-450); RED BLOOD COUNT 4.13 10^6/uL (4.00-5.40); WHITE BLOOD COUNT 8.8 10^3/uL (4.0-10.0)
[2019-10-26 07:19] LABS: BLOOD UREA NITROGEN 14 MG/DL (7-18); C REACTIVE PROTEIN QUANTITATIV 9.27 MG/DL (0.00-0.30); CALCIUM LEVEL 8.6 MG/DL (8.5-10.1); CARBON DIOXIDE LEVEL 25 MEQ/L (21-32); CHLORIDE LEVEL 110 MEQ/L (98-107); CREATININE FOR GFR 0.79 MG/DL (0.55-1.30); GLOMERULAR FILTRATION RATE > 60.0 (>51); GLUCOSE, FASTING 89 MG/DL (70-100); POTASSIUM SERUM 3.5 MEQ/L (3.5-5.1); SODIUM LEVEL 143 MEQ/L (136-145)
[2019-10-26 08:46] VITALS: BP 152/82
[2019-10-26] MEDS: lisinopriL 10 MG TAB PO SCH (08:46)
[2019-10-26] MEDS: valACYclovir HCL 500 MG TAB PO SCH (08:46)
[2019-10-26] MEDS: predniSONE 20 MG TAB PO SCH (08:46)
[2019-10-26] MEDS: HYDROCORTISONE 2.5% 20GM OINTMENT TOP SCH (08:47)
[2019-10-26] MEDS: ENOXAPARIN 40MG/0.4ML SYRINGE (J1650 PER 10MG) SC SCH (08:47)
[2019-10-26] MEDS: TRIAMCINOLONE ACET 0.1% OINTMENT 15 GM TOP SCH (08:48)
[2019-10-26] MEDS ORDERED: HYDR25OIN TOP (13:26)
[2019-10-26] MEDS ORDERED: PRED20TA PO (13:26)
[2019-10-26] MEDS ORDERED: TRIA1OI TOP (13:26)
[2019-10-26] MEDS ORDERED: VALA500T5 PO (13:26)
[2019-10-26 14:00] VITALS: BP 163/99
--- NOTE | 2019-10-26 16:26 | DS.PDOC ---
Discharge Summary General Date of Admission Oct 22, 2019 at 20:53 Date of Discharge 10/26/2019 Primary Care Physician: MERT ESRNA PA-C Attending Physician: Willem Polanco MD Discharge Summary PROCEDURES PERFORMED DURING STAY: None ADMITTING DIAGNOSES: 1. Rash 2. SIRS 3. Headache 4. Mild Transaminitis 5. Chronic HTN 6. Obesity DISCHARGE DIAGNOSES: 1. Maculopapular rash with vesicles - resolving with prednisone and valacyclovir. 2. HTN. 3. Obesity. COMPLICATIONS/CHIEF COMPLAINT: Rash Sirs. HISTORY OF PRESENT ILLNESS: This is a 58-year-old female who presented with complaints of a headache and neck soreness that began on 10/22/2019; shortly thereafter she really developed a rash at the right upper arm, the back of her neck, and her upper chest. She thought it was shingles which she's had in the past, so she decided to come to the hospital for evaluation. She denied being out in the sun, using new skin care products, new laundry detergents or eating new foods. She also denied sweating profusely, denied having nausea or vomiting, denied having diarrhea, denied having chest pain, denied having shortness of breath, denied having abdominal pain, denied having pain with urination, and denied having back pain or joint pain. She does admit to feeling weak and having chills. HOSPITAL COURSE: In the ER Ms. Levine was noted to fit SIRS criteria and was given Zosyn and IV fluids in the ER, blood cultures were taken, urinalysis with culture, a procalcitonin, VBG, respiratory panel were ordered and her lactate was trended. Her infectious workup was negative for bacterial infection and her vital signs stabilized after her admission to the hospital. A hepatits panel was ordered due to her transaminitis which was negative. Her rash was discussed with dermatology who recommended oral and topical steroids and follow-up in their office pending discharge. Ms. Levine repeatedly referenced a previous episode of symptoms which resolved with prednisone and valacyclovir. Her rash was not resolving quickly, so the decision was made late in her stay to attempt a trial of valacyclovir in combination with the oral prednisone she was already receiving, although she did NOT look like she had a herpes zoster infection. Interestingly (and inexplicably), her rash and fatigue improved significantly within a day of being on this combination of medications. She received lisinopril throughout her stay in continuity with her chronic HTN. DISCHARGE MEDICATIONS: Please see below. ALLERGIES: Please see below. PHYSICAL EXAMINATION ON DISCHARGE: VITAL SIGNS: Please see below. GENERAL: Obese woman sitting in a hospital chair in no apparent distress HEENT: Diffuse erythematous rash noted throughout face with periorbital sparing. No sparing of the NL folds. Good dentition, no lymphadenopathy, EOMI NECK: No lymphadenopathy, thyroid midline CARDIOVASCULAR EXAMINATION: RRR with no murmurs, rubs, gallops. +S1 and S2 noted. No JVD noted RESPIRATORY EXAMINATION: Lungs CTA B/L with no wheezing, rales or rhonchi ABDOMINAL EXAMINATION: Obese abdomen. Soft and nontender. No organomegaly or abdominal bruising noted EXTREMITIES: Palpable and equal pulses in all 4 extremities. No edema noted in LE B/L. Capillary refill <3 s. SKIN: Rash is about 40% resolved since yesterday. Still areas of confluent erythema noted in her R arm. NEUROLOGICAL EXAMINATION: Alert and aware X3. No FND. CNII-XII intact. No difficulties ambulating around the hospital wing LABORATORY DATA: Please see below. IMAGING: Vascular US: No evidence for deep venous thrombosis right upper extremity CXR: No acute cardiopulmonary process appreciated. PROGNOSIS: Good ACTIVITY: [As tolerated]. DIET: As tolerated DISCHARGE PLAN: DISCHARGE INSTRUCTIONS: 1. Complete course of prednisone and Valtrex ITEMS TO FOLLOWUP ON ON OUTPATIENT: 1. Follow up with Dr. Hughes on tomorrow () at 1:00 PM. DISCHARGE CONDITION: [Stable]. TIME SPENT ON DISCHARGE: Greater than 45 minutes. Vital Signs/I&Os Vital Signs Date Time Temp Pulse Resp B/P (MAP) Pulse Ox O2 Delivery O2 Flow Rate FiO2 10/26/19 14:00 98.6 96 18 163/99 (120) 97 Room Air I&O- Last 24 Hours up to 6 AM 10/26/19 06:00 Intake Total 2700 ml Output Total 4025 ml Balance -1325 ml Laboratory Data Labs 24H Laboratory Tests 2 10/26/19 06:40: Immature Granulocyte % (Auto) 0.9, Neutrophils (%) (Auto) 50.9, Lymphocytes (%) (Auto) 39.0, Monocytes (%) (Auto) 6.7H, Eosinophils (%) (Auto) 1.9, Basophils (%) (Auto) 0.6, Neutrophils # (Auto) 4.5, Lymphocytes # (Auto) 3.4, Monocytes # (Auto) 0.6, Eosinophils # (Auto) 0.2, Basophils # (Auto) 0.1, Nucleated Red Blood Cells % (auto) 0.0, Anion Gap 8, Glomerular Filtration Rate > 60.0, Calcium Level 8.6, C-Reactive Protein, Quantitative 9.27H CBC/BMP Laboratory Tests 10/26/19 06:40 Microbiology Microbiology 10/22/19 Respiratory Virus Panel (PCR) ([facility]) - Final, Complete 10/22/19 Blood Culture - Preliminary, Resulted No Growth after 72 hours. All specime... 10/22/19 Blood Culture - Preliminary, Resulted No Growth after 72 hours. All specime... Discharge Medications Scheduled Rodrigo/D3/Mag11/Zinc/Metal Room Dental Technician/James/Bor (Caltrate 600+D Plus Tablet) 1 Each Tablet, 2 TAB PO DAILY, (Reported) Hydrocortisone (Hydrocortisone 2.5%) 20 Gm Oint...g., 0 DOSE TOP BID Lisinopril/Hydrochlorothiazide (Lisinopril-Hctz 10-12.5 mg Tab) 1 Tab Tab, 1 TAB PO DAILY, (Reported) Multivitamins (Thera M Plus Tablet) 1 Each Tablet, 1 TAB PO DAILY, (Reported) Prednisone (Prednisone) 20 Mg Tablet, 40 MG PO DAILY Triamcinolone Acet (Triamcinolone Acetonide 0.1% Oint) 15 Gm Oint...g., 0 DOSE TOP BID Valacyclovir HCl (Valacyclovir) 500 Mg Tablet, 1,000 MG PO BID Allergies Coded Allergies: No Known Allergies (Unverified , 08/19/18) E ATTESTATION ATTENDING NOTE Family Medicine Attending Note: I was present on site to supervise Cristian Garnett. We discussed the history and exam. I confirmed the quezada elements during my [id number] encounter with the patient. We conferred on the assessment and plan; I agree with the note as documented. I have to admit I'm surprised that she improved on Valtrex, but that is in fact what happened. She'll be seeing dermatology tomorrow and perhaps they can help us sort this out. (sterile process coordinator) OUMAR GARNETT OMS-3 Oct 26, 2019 16:26 Willem Polanco MD Oct 26, 2019 22:01
== END 2019-10-26 14:59 | disposition home or self-care (01) | DRG 607 ==
LOC: M ED 18:28 → M ED INP 20:53 → ENRESERV 21:23 → M PCU 22:54 → M MS5PR 10-24 10:04
PROVIDERS: ADMIT Internal Medicine; ATTEND Internal Medicine
DX: R21 Rash and other nonspecific skin eruption (principal); I10 Essential (primary) hypertension; E66.9 Obesity, unspecified; Z79.899 Other long term (current) drug therapy; Z68.33 Body mass index [BMI] 33.0-33.9, adult

== ENCOUNTER → 2019-10-27 | Outpatient (REF) | payer OTHER ==
[~2019-10-27] MED LIST changes: +CALTTAB6 PO; +HYDR25OIN TOP; +PRED20TA PO; +TRIA1OI TOP; +VALA500T5 PO; +VITMTA PO
== END ==
LOC: M LAB REF 10:34
PROVIDERS: ATTEND Dermatology
DX: L90.5 Scar conditions and fibrosis of skin (principal)

== ENCOUNTER → 2019-12-30 | Outpatient (CLI) | payer OTHER ==
[2019-12-30 10:54] LABS: BASO % 0.4 % (0.0-1.0); EOS # 0.1 10^3/uL (0.0-0.5); EOS % 1.8 % (0.0-3.0); HEMATOCRIT 42.9 % (36.0-47.0); HEMOGLOBIN 14.3 g/dl (12.0-15.5); LYMPH # 2.3 10^3/uL (1.5-5.0); LYMPH % 29.2 % (24.0-44.0); MEAN CORPUSCULAR HGB CONC 33.3 g/dl (32.0-36.5); MEAN CORPUSCULAR VOLUME 89.9 fl (80.0-96.0); MONO # 0.4 10^3/uL (0.0-0.8); MONO % 4.8 % (0.0-5.0); NEUTROPHILS # 5.1 10^3/uL (1.5-8.5); NEUTROPHILS % 63.5 % (36.0-66.0); PLATELET COUNT, AUTOMATED 408 10^3/uL (150-450); RED BLOOD COUNT 4.77 10^6/uL (4.00-5.40); WHITE BLOOD COUNT 7.9 10^3/uL (4.0-10.0)
[2019-12-30 11:06] LABS: BLOOD UREA NITROGEN 13 MG/DL (7-18); CALCIUM LEVEL 9.6 MG/DL (8.8-10.2); CARBON DIOXIDE LEVEL 24 MEQ/L (21-32); CHLORIDE LEVEL 103 MEQ/L (98-107); CREATININE FOR GFR 0.82 MG/DL (0.55-1.30); GLOMERULAR FILTRATION RATE > 60.0 (>45); GLUCOSE, FASTING 74 MG/DL (70-100); POTASSIUM SERUM 4.4 MEQ/L (3.5-5.1); SODIUM LEVEL 135 MEQ/L (136-145)
[2019-12-30 12:28] LABS: HEMOGLOBIN A1c 5.4 %
== END ==
LOC: M LAB 09:28
PROVIDERS: ATTEND Physician Assistant
DX: R73.01 Impaired fasting glucose (principal)

== ENCOUNTER 2020-01-15 14:55 | Outpatient (RCR) | payer OTHER | END 2020-01-20 | LOC: M PT 14:55 | PROVIDERS: ATTEND Family Medicine | DX: I89.0 Lymphedema, not elsewhere classified (principal); Z85.3 Personal history of malignant neoplasm of breast ==

== ENCOUNTER → 2020-06-28 | Outpatient (CLI) | payer OTHER ==
[2020-06-28 08:54] LABS: ALT/SGPT 22 U/L (12-78); BILIRUBIN,TOTAL 0.4 MG/DL (0.2-1.0); BLOOD UREA NITROGEN 14 MG/DL (7-18); CALCIUM LEVEL 9.3 MG/DL (8.8-10.2); CARBON DIOXIDE LEVEL 29 MEQ/L (21-32); CHLORIDE LEVEL 105 MEQ/L (98-107); CREATININE FOR GFR 0.84 MG/DL (0.55-1.30); GLOMERULAR FILTRATION RATE > 60.0 (>45); GLUCOSE, FASTING 96 MG/DL (70-100); POTASSIUM SERUM 4.1 MEQ/L (3.5-5.1); SODIUM LEVEL 139 MEQ/L (136-145)
[2020-06-28 08:55] LABS: TOTAL PROTEIN 7.8 GM/DL (6.4-8.2)
[2020-06-28 08:57] LABS: HEMOGLOBIN A1c 5.4 %
== END ==
LOC: M LAB 07:31
PROVIDERS: ATTEND Physician Assistant
DX: R73.01 Impaired fasting glucose (principal)

== ENCOUNTER → 2020-12-30 | Outpatient (CLI) | payer OTHER ==
[2020-12-30 07:57] LABS: BASO # 0.1 10^3/uL (0.0-0.2); BASO % 0.7 % (0.0-1.0); EOS # 0.3 10^3/uL (0.0-0.5); EOS % 3.9 % (0.0-3.0); HEMATOCRIT 44.5 % (36.0-47.0); HEMOGLOBIN 14.6 g/dl (12.0-15.5); LYMPH # 3.2 10^3/uL (1.5-5.0); LYMPH % 43.5 % (24.0-44.0); MEAN CORPUSCULAR HEMOGLOBIN 29.7 pg (27.0-33.0); MEAN CORPUSCULAR HGB CONC 32.8 g/dl (32.0-36.5); MEAN CORPUSCULAR VOLUME 90.6 fl (80.0-96.0); MONO # 0.4 10^3/uL (0.0-0.8); MONO % 6.1 % (2.0-8.0); NEUTROPHILS # 3.3 10^3/uL (1.5-8.5); NEUTROPHILS % 45.7 % (36.0-66.0); PLATELET COUNT, AUTOMATED 357 10^3/uL (150-450); RED BLOOD COUNT 4.91 10^6/uL (4.00-5.40); WHITE BLOOD COUNT 7.3 10^3/uL (4.0-10.0)
[2020-12-30 08:15] LABS: ALT/SGPT 26 U/L (12-78); BILIRUBIN,TOTAL 0.7 MG/DL (0.2-1.0); BLOOD UREA NITROGEN 15 MG/DL (7-18); CALCIUM LEVEL 9.7 MG/DL (8.8-10.2); CARBON DIOXIDE LEVEL 25 MEQ/L (21-32); CHLORIDE LEVEL 105 MEQ/L (98-107); CHOLESTEROL LEVEL 234 MG/DL (<200); CHOLESTEROL RISK RATIO 4.588 (<5); CREATININE FOR GFR 0.86 MG/DL (0.55-1.30); GLOMERULAR FILTRATION RATE > 60.0 (>45); GLUCOSE, FASTING 90 MG/DL (70-100); HDL CHOLESTEROL 51 MG/DL (>40); LDL CHOLESTEROL 151 MG/DL (<100); NON-HDL-C 183 MG/DL; POTASSIUM SERUM 4.2 MEQ/L (3.5-5.1); SODIUM LEVEL 137 MEQ/L (136-145); TOTAL PROTEIN 8.1 GM/DL (6.4-8.2); TRIGLYCERIDES LEVEL 160 MG/DL (<150)
[2020-12-30 08:35] LABS: HEMOGLOBIN A1c 5.5 %
== END ==
LOC: M LAB 07:21
PROVIDERS: ATTEND Family Medicine
DX: R73.01 Impaired fasting glucose (principal); I10 Essential (primary) hypertension

== ENCOUNTER 2021-01-07 07:53 | Emergency (ER) | payer OTHER ==
[~2021-01-07] VITALS: Ht 172.7 cm; Wt 91.8 kg
[2021-01-07 08:30] LABS: BASO % 0.4 % (0.0-1.0); EOS # 0.1 10^3/uL (0.0-0.5); EOS % 0.8 % (0.0-3.0); HEMATOCRIT 38.7 % (36.0-47.0); HEMOGLOBIN 13.6 g/dl (12.0-15.5); LYMPH # 2.1 10^3/uL (1.5-5.0); MEAN CORPUSCULAR HEMOGLOBIN 30.4 pg (27.0-33.0); MEAN CORPUSCULAR HGB CONC 35.1 g/dl (32.0-36.5); MEAN CORPUSCULAR VOLUME 86.6 fl (80.0-96.0); MONO # 0.6 10^3/uL (0.0-0.8); MONO % 6.5 % (2.0-8.0); NEUTROPHILS # 6.2 10^3/uL (1.5-8.5); NEUTROPHILS % 69.2 % (36.0-66.0); PLATELET COUNT, AUTOMATED 396 10^3/uL (150-450); RED BLOOD COUNT 4.47 10^6/uL (4.00-5.40)
[2021-01-07 08:56] LABS: ALBUMIN 4.1 GM/DL (3.2-5.2); BILIRUBIN,DIRECT 0.2 MG/DL (0.0-0.2); BILIRUBIN,TOTAL 0.9 MG/DL (0.2-1.0); TOTAL PROTEIN 8.1 GM/DL (6.4-8.2)
[2021-01-07] MEDS ORDERED: ISOVUE-370 76% 100ML VIAL As Ordered ONE (10:43)
--- NOTE | 2021-01-07 11:16 | REP ---
INDICATION: abd pain no bm. COMPARISON: 08/19/2008 the only prior TECHNIQUE: Standard helical technique after the intravenous administration of 100 cc Isovue 370. No oral bowel preparatory contrast was administered prior to the exam. FINDINGS: The lung bases are clear. The liver, gallbladder, spleen, pancreas, adrenal glands, and kidneys are within normal limits. The abdominal aorta and para-aortic regions are within normal limits. The bowel loops and the mesenteries are within normal limits. There is no free fluid or free air. There is no mass or adenopathy. Bone window technique throughout the exam shows lumbar spine discogenic changes and a minimal grade 1 L4 upon L5 spondylolisthesis. IMPRESSION: There is no evidence of acute disease. Findings as described above. <Electronically signed by Baltazar Rodriguez > 01/07/21 [id number]
[2021-01-07 11:28] VITALS: BP 134/68
== END 2021-01-07 11:30 | disposition home or self-care (01) ==
LOC: M ED 07:53
DX: R10.9 Unspecified abdominal pain (principal); I10 Essential (primary) hypertension; Z79.899 Other long term (current) drug therapy; Z85.3 Personal history of malignant neoplasm of breast; Z98.890 Other specified postprocedural states; Z82.49 Family history of ischemic heart disease and other diseases of the circulatory system; Z80.9 Family history of malignant neoplasm, unspecified
CPT/HCPCS: 36415; 74177; 80047; 80076; 83690; 85025; 99283; Q9967

== ENCOUNTER → 2021-06-29 | Outpatient (CLI) | payer OTHER ==
[~2021-06-29] MED LIST changes: -LISI10TA15 PO; +LISI10TA24 PO
[2021-06-29 12:19] LABS: BASO % 0.5 % (0.0-1.0); EOS # 0.2 10^3/uL (0.0-0.5); EOS % 2.3 % (0.0-3.0); HEMATOCRIT 41.6 % (36.0-47.0); LYMPH # 3.1 10^3/uL (1.5-5.0); LYMPH % 41.7 % (24.0-44.0); MEAN CORPUSCULAR HEMOGLOBIN 29.5 pg (27.0-33.0); MEAN CORPUSCULAR HGB CONC 33.7 g/dl (32.0-36.5); MEAN CORPUSCULAR VOLUME 87.8 fl (80.0-96.0); MONO # 0.4 10^3/uL (0.0-0.8); MONO % 5.5 % (2.0-8.0); NEUTROPHILS # 3.7 10^3/uL (1.5-8.5); NEUTROPHILS % 49.7 % (36.0-66.0); PLATELET COUNT, AUTOMATED 367 10^3/uL (150-450); RED BLOOD COUNT 4.74 10^6/uL (4.00-5.40); WHITE BLOOD COUNT 7.4 10^3/uL (4.0-10.0)
[2021-06-29 12:45] LABS: ALBUMIN 4.1 GM/DL (3.2-5.2); ALT/SGPT 29 U/L (12-78); BILIRUBIN,TOTAL 0.7 MG/DL (0.2-1.0); BLOOD UREA NITROGEN 16 MG/DL (7-18); CALCIUM LEVEL 9.5 MG/DL (8.8-10.2); CARBON DIOXIDE LEVEL 31 MEQ/L (21-32); CHLORIDE LEVEL 103 MEQ/L (98-107); CHOLESTEROL LEVEL 214 MG/DL (<200); CHOLESTEROL RISK RATIO 3.821 (<5); CREATININE FOR GFR 0.76 MG/DL (0.55-1.30); GLOMERULAR FILTRATION RATE > 60.0 (>45); GLUCOSE, FASTING 78 MG/DL (70-100); HDL CHOLESTEROL 56 MG/DL (>40); LDL CHOLESTEROL 136 MG/DL (<100); NON-HDL-C 158 MG/DL; POTASSIUM SERUM 3.9 MEQ/L (3.5-5.1); SODIUM LEVEL 137 MEQ/L (136-145); TRIGLYCERIDES LEVEL 112 MG/DL (<150)
[2021-06-29 13:08] LABS: HEMOGLOBIN A1c 5.5 %
== END ==
LOC: M LAB 11:48
PROVIDERS: ATTEND Physician Assistant
DX: E78.2 Mixed hyperlipidemia (principal); R73.01 Impaired fasting glucose

== ENCOUNTER → 2021-11-15 | Outpatient (CLI) | payer OTHER ==
[2021-11-15 10:48] LABS: BASO % 0.5 % (0.0-1.0); EOS # 0.1 10^3/uL (0.0-0.5); EOS % 0.8 % (0.0-3.0); HEMATOCRIT 36.8 % (36.0-47.0); HEMOGLOBIN 12.7 g/dl (12.0-15.5); LYMPH # 2.2 10^3/uL (1.5-5.0); LYMPH % 25.8 % (24.0-44.0); MEAN CORPUSCULAR HEMOGLOBIN 30.3 pg (27.0-33.0); MEAN CORPUSCULAR HGB CONC 34.5 g/dl (32.0-36.5); MEAN CORPUSCULAR VOLUME 87.8 fl (80.0-96.0); MONO # 0.6 10^3/uL (0.0-0.8); MONO % 6.5 % (2.0-8.0); NEUTROPHILS # 5.7 10^3/uL (1.5-8.5); PLATELET COUNT, AUTOMATED 371 10^3/uL (150-450); RED BLOOD COUNT 4.19 10^6/uL (4.00-5.40); WHITE BLOOD COUNT 8.6 10^3/uL (4.0-10.0)
[2021-11-15 11:29] LABS: ALBUMIN 4.3 GM/DL (3.2-5.2); ALT/SGPT 27 U/L (12-78); BILIRUBIN,TOTAL 0.6 MG/DL (0.2-1.0); BLOOD UREA NITROGEN 14 MG/DL (7-18); CALCIUM LEVEL 9.9 MG/DL (8.8-10.2); CARBON DIOXIDE LEVEL 27 MEQ/L (21-32); CHLORIDE LEVEL 100 MEQ/L (98-107); GLOMERULAR FILTRATION RATE > 60.0 (>45); GLUCOSE, FASTING 90 MG/DL (70-100); LDH LACTATE DEHYDROGENASE 192 U/L (84-246); POTASSIUM SERUM 3.6 MEQ/L (3.5-5.1); SODIUM LEVEL 133 MEQ/L (136-145); TOTAL PROTEIN 7.8 GM/DL (6.4-8.2)
[2021-11-15 12:42] LABS: CA 125 < 2.0 U/ML (<30.2)
== END ==
LOC: M LAB 09:43
PROVIDERS: ATTEND Physician Assistant
DX: R22.2 Localized swelling, mass and lump, trunk (principal)

== ENCOUNTER → 2021-11-17 | Outpatient (CLI) | payer OTHER | LOC: M PLARAD 12:26 | PROVIDERS: ATTEND Physician Assistant | DX: R22.2 Localized swelling, mass and lump, trunk (principal) ==

== ENCOUNTER → 2021-12-13 | Outpatient (CLI) | payer OTHER | LOC: M WHC 10:22 | PROVIDERS: ATTEND Physician Assistant | DX: Z13.820 Encounter for screening for osteoporosis (principal); M85.89 Other specified disorders of bone density and structure, multiple sites ==

== ENCOUNTER → 2021-12-27 | Outpatient (CLI) | payer OTHER ==
[2021-12-27 14:08] LABS: BASO # 0.1 10^3/uL (0.0-0.2); BASO % 0.7 % (0.0-1.0); EOS # 0.2 10^3/uL (0.0-0.5); HEMOGLOBIN 13.2 g/dl (12.0-15.5); LYMPH # 3.2 10^3/uL (1.5-5.0); LYMPH % 36.9 % (24.0-44.0); MEAN CORPUSCULAR HEMOGLOBIN 30.7 pg (27.0-33.0); MEAN CORPUSCULAR HGB CONC 33.8 g/dl (32.0-36.5); MEAN CORPUSCULAR VOLUME 90.7 fl (80.0-96.0); MONO # 0.6 10^3/uL (0.0-0.8); MONO % 6.7 % (2.0-8.0); NEUTROPHILS # 4.6 10^3/uL (1.5-8.5); NEUTROPHILS % 53.5 % (36.0-66.0); PLATELET COUNT, AUTOMATED 350 10^3/uL (150-450); WHITE BLOOD COUNT 8.7 10^3/uL (4.0-10.0)
[2021-12-27 14:54] LABS: ALBUMIN 4.2 GM/DL (3.2-5.2); ALT/SGPT 21 U/L (12-78); BILIRUBIN,TOTAL 0.7 MG/DL (0.2-1.0); BLOOD UREA NITROGEN 14 MG/DL (7-18); CALCIUM LEVEL 9.7 MG/DL (8.8-10.2); CARBON DIOXIDE LEVEL 27 MEQ/L (21-32); CHLORIDE LEVEL 102 MEQ/L (98-107); CHOLESTEROL LEVEL 201 MG/DL (<200); CHOLESTEROL RISK RATIO 3.792 (<5); CREATININE FOR GFR 0.78 MG/DL (0.55-1.30); GLOMERULAR FILTRATION RATE > 60.0 (>45); GLUCOSE, FASTING 68 MG/DL (70-100); HDL CHOLESTEROL 53 MG/DL (>40); LDL CHOLESTEROL 132 MG/DL (<100); NON-HDL-C 148 MG/DL; POTASSIUM SERUM 4.2 MEQ/L (3.5-5.1); SODIUM LEVEL 136 MEQ/L (136-145); TOTAL PROTEIN 7.6 GM/DL (6.4-8.2); TRIGLYCERIDES LEVEL 79 MG/DL (<150)
[2021-12-27 15:10] LABS: HEMOGLOBIN A1c 5.6 %
[2021-12-27 15:34] LABS: TOTAL 25(OH) VITAMIN D 41.5 NG/ML (30.0-100.0)
== END ==
LOC: M LAB 13:24
PROVIDERS: ATTEND Physician Assistant
DX: I10 Essential (primary) hypertension (principal); Z85.3 Personal history of malignant neoplasm of breast; E78.2 Mixed hyperlipidemia

== ENCOUNTER → 2022-03-19 | Outpatient (CLI) | payer OTHER | LOC: M LABSMTC 09:36 | PROVIDERS: ATTEND Anesthesiology | DX: Z01.812 Encounter for preprocedural laboratory examination (principal); Z11.52 Encounter for screening for COVID-19 ==

== ENCOUNTER 2022-03-22 07:13 | Day surgery (SDC) | payer OTHER ==
[~2022-03-22] VITALS: Ht 172.7 cm; Wt 89.8 kg
[~2022-03-22 07:13] MED LIST changes: +NS 1,000 ML IV ONE
[2022-03-22 09:49] VITALS: BP 133/78
== END 2022-03-22 09:57 | disposition home or self-care (01) ==
LOC: M OPP 07:13
PROVIDERS: ATTEND Internal Medicine Gastroenterology
DX: Z12.11 Encounter for screening for malignant neoplasm of colon (principal); Z86.010 Personal history of colon polyps; Z80.0 Family history of malignant neoplasm of digestive organs; K63.5 Polyp of colon; K57.30 Diverticulosis of large intestine without perforation or abscess without bleeding; K64.8 Other hemorrhoids; I10 Essential (primary) hypertension; M16.11 Unilateral primary osteoarthritis, right hip; Z85.3 Personal history of malignant neoplasm of breast; Z92.3 Personal history of irradiation; Z92.21 Personal history of antineoplastic chemotherapy; Z79.899 Other long term (current) drug therapy; Z80.3 Family history of malignant neoplasm of breast; Z80.42 Family history of malignant neoplasm of prostate; Z80.6 Family history of leukemia; Z80.8 Family history of malignant neoplasm of other organs or systems; Z82.69 Family history of other diseases of the musculoskeletal system and connective tissue; Z83.79 Family history of other diseases of the digestive system

== ENCOUNTER → 2022-07-16 | Outpatient (CLI) | payer OTHER ==
[~2022-07-16] MED LIST changes: -NS 1,000 ML IV ONE
[2022-07-16 08:45] LABS: BASO # 0.1 10^3/uL (0.0-0.2); EOS # 0.2 10^3/uL (0.0-0.5); EOS % 3.7 % (0.0-3.0); HEMATOCRIT 42.2 % (36.0-47.0); HEMOGLOBIN 13.9 g/dl (12.0-15.5); LYMPH # 2.6 10^3/uL (1.5-5.0); LYMPH % 44.4 % (24.0-44.0); MEAN CORPUSCULAR HEMOGLOBIN 29.6 pg (27.0-33.0); MEAN CORPUSCULAR HGB CONC 32.9 g/dl (32.0-36.5); MONO # 0.4 10^3/uL (0.0-0.8); MONO % 6.3 % (2.0-8.0); NEUTROPHILS # 2.6 10^3/uL (1.5-8.5); NEUTROPHILS % 44.3 % (36.0-66.0); PLATELET COUNT, AUTOMATED 399 10^3/uL (150-450); RED BLOOD COUNT 4.69 10^6/uL (4.00-5.40); WHITE BLOOD COUNT 5.9 10^3/uL (4.0-10.0)
[2022-07-16 09:18] LABS: ALBUMIN 4.2 G/DL (3.2-5.2); ALKALINE PHOSPHATASE 102 U/L (46-116); ALT/SGPT 18 U/L (7.0-40); AST/SGOT 20 U/L (<34); BILIRUBIN,TOTAL 0.8 MG/DL (0.3-1.2); BLOOD UREA NITROGEN 11 MG/DL (9-23); CALCIUM LEVEL 9.7 MG/DL (8.3-10.6); CARBON DIOXIDE LEVEL 27 MMOL/L (20-31); CHLORIDE LEVEL 101 MMOL/L (98-107); CHOLESTEROL LEVEL 173 MG/DL (<200); CREATININE FOR GFR 0.76 MG/DL (0.55-1.30); GLOMERULAR FILTRATION RATE > 60.0 (>45); GLUCOSE, FASTING 93 MG/DL (74-106); HDL CHOLESTEROL 52.4 MG/DL (>40); LDL CHOLESTEROL 99.2 MG/DL (<100); NON-HDL-C 120.6 MG/DL; POTASSIUM SERUM 3.6 MMOL/L (3.5-5.1); SODIUM LEVEL 137 MMOL/L (136-145); TOTAL 25(OH) VITAMIN D 36.4 NG/ML (20.0-100.0); TOTAL PROTEIN 7.5 G/DL (5.7-8.2); TRIGLYCERIDES LEVEL 107 MG/DL (<150)
[2022-07-16 09:38] LABS: HEMOGLOBIN A1c 5.3 % (4.0-6.0)
== END ==
LOC: M LAB 07:40
PROVIDERS: ATTEND Physician Assistant
DX: I10 Essential (primary) hypertension (principal); Z85.3 Personal history of malignant neoplasm of breast; E78.2 Mixed hyperlipidemia

== ENCOUNTER → 2022-10-31 | Outpatient (CLI) | payer OTHER ==
[2022-10-31 10:28] LABS: BASO # 0.1 10^3/uL (0.0-0.2); BASO % 0.8 % (0.0-1.0); EOS # 0.2 10^3/uL (0.0-0.5); EOS % 3.6 % (0.0-3.0); HEMATOCRIT 41.8 % (36.0-47.0); HEMOGLOBIN 13.7 g/dl (12.0-15.5); LYMPH # 2.4 10^3/uL (1.5-5.0); LYMPH % 37.4 % (24.0-44.0); MEAN CORPUSCULAR HEMOGLOBIN 29.4 pg (27.0-33.0); MEAN CORPUSCULAR HGB CONC 32.8 g/dl (32.0-36.5); MEAN CORPUSCULAR VOLUME 89.7 fl (80.0-96.0); MONO # 0.4 10^3/uL (0.0-0.8); MONO % 6.1 % (2.0-8.0); NEUTROPHILS # 3.3 10^3/uL (1.5-8.5); NEUTROPHILS % 51.9 % (36.0-66.0); PLATELET COUNT, AUTOMATED 359 10^3/uL (150-450); RED BLOOD COUNT 4.66 10^6/uL (4.00-5.40); WHITE BLOOD COUNT 6.4 10^3/uL (4.0-10.0)
[2022-10-31 10:52] LABS: ALBUMIN 4.1 G/DL (3.2-5.2); ALKALINE PHOSPHATASE 109 U/L (46-116); ALT/SGPT < 9 U/L (7.0-40); AST/SGOT 16 U/L (<34); BILIRUBIN,TOTAL 0.6 MG/DL (0.3-1.2); BLOOD UREA NITROGEN 12 MG/DL (9-23); CALCIUM LEVEL 9.5 MG/DL (8.3-10.6); CARBON DIOXIDE LEVEL 26 MMOL/L (20-31); CHLORIDE LEVEL 102 MMOL/L (98-107); CREATININE FOR GFR 0.67 MG/DL (0.55-1.30); GLOMERULAR FILTRATION RATE > 60.0 (>45); GLUCOSE, FASTING 87 MG/DL (74-106); POTASSIUM SERUM 4.2 MMOL/L (3.5-5.1); SODIUM LEVEL 136 MMOL/L (136-145); TOTAL PROTEIN 7.5 G/DL (5.7-8.2)
[2022-10-31 11:10] LABS: CA15-3 ANTIGEN 15.6 U/ML (<32.4)
== END ==
LOC: M LAB 09:33
PROVIDERS: ATTEND Internal Medicine Medical Oncology
DX: C50.919 Malignant neoplasm of unspecified site of unspecified female breast (principal)

== ENCOUNTER → 2023-07-19 | Outpatient (CLI) | payer OTHER ==
[2023-07-19 08:24] LABS: BASO % 0.7 % (0.0-1.0); EOS # 0.2 10^3/uL (0.0-0.5); EOS % 3.7 % (0.0-3.0); HEMATOCRIT 39.9 % (36.0-47.0); HEMOGLOBIN 13.3 g/dl (12.0-15.5); LYMPH # 2.6 10^3/uL (1.5-5.0); LYMPH % 45.5 % (24.0-44.0); MEAN CORPUSCULAR HEMOGLOBIN 30.3 pg (27.0-33.0); MEAN CORPUSCULAR HGB CONC 33.3 g/dl (32.0-36.5); MEAN CORPUSCULAR VOLUME 90.9 fl (80.0-96.0); MONO # 0.3 10^3/uL (0.0-0.8); MONO % 5.5 % (2.0-8.0); NEUTROPHILS # 2.5 10^3/uL (1.5-8.5); NEUTROPHILS % 44.4 % (36.0-66.0); PLATELET COUNT, AUTOMATED 348 10^3/uL (150-450); RED BLOOD COUNT 4.39 10^6/uL (4.00-5.40); WHITE BLOOD COUNT 5.6 10^3/uL (4.0-10.0)
[2023-07-19 08:40] LABS: HEMOGLOBIN A1c 5.3 % (4.0-6.0)
[2023-07-19 08:48] LABS: ALBUMIN 3.9 G/DL (3.2-5.2); ALKALINE PHOSPHATASE 101 U/L (46-116); ALT/SGPT 17 U/L (7.0-40); AST/SGOT 16 U/L (<34); BILIRUBIN,TOTAL 0.6 MG/DL (0.3-1.2); BLOOD UREA NITROGEN 15 MG/DL (9-23); CALCIUM LEVEL 9.1 MG/DL (8.3-10.6); CARBON DIOXIDE LEVEL 28 MMOL/L (20-31); CHLORIDE LEVEL 103 MMOL/L (98-107); CHOLESTEROL LEVEL 187 MG/DL (<200); CHOLESTEROL RISK RATIO 4.41 (<5); CREATININE FOR GFR 0.72 MG/DL (0.55-1.30); GLOMERULAR FILTRATION RATE > 60.0 (>45); GLUCOSE, FASTING 96 MG/DL (74-106); HDL CHOLESTEROL 42.4 MG/DL (>40); NON-HDL-C 144.6 MG/DL; SODIUM LEVEL 137 MMOL/L (136-145); TOTAL PROTEIN 7.2 G/DL (5.7-8.2); TRIGLYCERIDES LEVEL 123 MG/DL (<150)
[2023-07-19 08:52] LABS: TOTAL 25(OH) VITAMIN D 73.9 NG/ML (20.0-100.0)
== END ==
LOC: M LAB 07:49
PROVIDERS: ATTEND Family Medicine
DX: E78.2 Mixed hyperlipidemia (principal); E55.9 Vitamin D deficiency, unspecified; I10 Essential (primary) hypertension

== ENCOUNTER → 2023-12-19 | Outpatient (CLI) | payer OTHER | LOC: M WHC 09:22 | PROVIDERS: ATTEND Family Medicine | DX: Z13.820 Encounter for screening for osteoporosis (principal); M85.89 Other specified disorders of bone density and structure, multiple sites ==

== ENCOUNTER → 2024-01-20 | Outpatient (CLI) | payer OTHER ==
[2024-01-20 08:29] LABS: BASO # 0.1 10^3/uL (0.0-0.2); BASO % 0.8 % (0.0-1.0); EOS # 0.1 10^3/uL (0.0-0.5); EOS % 2.1 % (0.0-3.0); HEMOGLOBIN 12.6 g/dl (12.0-15.5); LYMPH # 2.2 10^3/uL (1.5-5.0); LYMPH % 33.6 % (24.0-44.0); MEAN CORPUSCULAR HEMOGLOBIN 30.1 pg (27.0-33.0); MEAN CORPUSCULAR HGB CONC 33.2 g/dl (32.0-36.5); MEAN CORPUSCULAR VOLUME 90.7 fl (80.0-96.0); MONO # 0.4 10^3/uL (0.0-0.8); MONO % 6.5 % (2.0-8.0); NEUTROPHILS # 3.7 10^3/uL (1.5-8.5); NEUTROPHILS % 56.8 % (36.0-66.0); PLATELET COUNT, AUTOMATED 389 10^3/uL (150-450); RED BLOOD COUNT 4.19 10^6/uL (4.00-5.40); WHITE BLOOD COUNT 6.6 10^3/uL (4.0-10.0)
[2024-01-20 08:42] LABS: HEMOGLOBIN A1c 5.3 % (4.0-6.0)
[2024-01-20 08:56] LABS: ALKALINE PHOSPHATASE 94 U/L (46-116); ALT/SGPT 16 U/L (7.0-40); AST/SGOT 18 U/L (<34); BILIRUBIN,TOTAL 0.6 MG/DL (0.3-1.2); BLOOD UREA NITROGEN 11 MG/DL (9-23); CALCIUM LEVEL 9.3 MG/DL (8.3-10.6); CARBON DIOXIDE LEVEL 28 MMOL/L (20-31); CHLORIDE LEVEL 103 MMOL/L (98-107); CHOLESTEROL LEVEL 161 MG/DL (<200); CHOLESTEROL RISK RATIO 3.34 (<5); CREATININE FOR GFR 0.83 MG/DL (0.55-1.30); GLOMERULAR FILTRATION RATE > 60.0 (>45); GLUCOSE, FASTING 87 MG/DL (74-106); HDL CHOLESTEROL 48.2 MG/DL (>40); LDL CHOLESTEROL 94.4 MG/DL (<100); NON-HDL-C 112.8 MG/DL; SODIUM LEVEL 133 MMOL/L (136-145); TOTAL PROTEIN 7.3 G/DL (5.7-8.2); TRIGLYCERIDES LEVEL 92 MG/DL (<150)
[2024-01-20 08:57] LABS: THYROID STIMULATING HORMONE 4.023 uIU/ML (0.55-4.78); TOTAL 25(OH) VITAMIN D 39.4 NG/ML (20.0-100.0)
[2024-01-20 08:58] LABS: FREE T4 1.28 NG/DL (0.89-1.76)
== END ==
LOC: M LAB 07:42
PROVIDERS: ATTEND Family Medicine
DX: E78.2 Mixed hyperlipidemia (principal); I10 Essential (primary) hypertension; E55.9 Vitamin D deficiency, unspecified; R73.01 Impaired fasting glucose

== ENCOUNTER → 2024-02-19 | Outpatient (CLI) | payer OTHER | LOC: M RAD 10:49 | PROVIDERS: ATTEND Physician Assistant | DX: M16.11 Unilateral primary osteoarthritis, right hip (principal) ==

== ENCOUNTER → 2024-05-28 | Outpatient (CLI) | payer OTHER | LOC: M PLAIMG 09:50 | PROVIDERS: ATTEND Physician Assistant | DX: R43.8 Other disturbances of smell and taste (principal) ==

== ENCOUNTER → 2024-07-20 | Outpatient (CLI) | payer OTHER ==
[2024-07-20 11:11] LABS: BASO # 0.1 10^3/uL (0.0-0.2); BASO % 0.7 % (0.0-1.0); EOS # 0.1 10^3/uL (0.0-0.5); EOS % 1.6 % (0.0-3.0); HEMATOCRIT 42.2 % (36.0-47.0); HEMOGLOBIN 14.2 g/dl (12.0-15.5); LYMPH # 2.4 10^3/uL (1.5-5.0); LYMPH % 33.4 % (24.0-44.0); MEAN CORPUSCULAR HEMOGLOBIN 30.3 pg (27.0-33.0); MEAN CORPUSCULAR HGB CONC 33.6 g/dl (32.0-36.5); MONO # 0.4 10^3/uL (0.0-0.8); MONO % 5.1 % (2.0-8.0); NEUTROPHILS # 4.3 10^3/uL (1.5-8.5); NEUTROPHILS % 58.8 % (36.0-66.0); PLATELET COUNT, AUTOMATED 381 10^3/uL (150-450); RED BLOOD COUNT 4.69 10^6/uL (4.00-5.40); WHITE BLOOD COUNT 7.3 10^3/uL (4.0-10.0)
[2024-07-20 11:21] LABS: HEMOGLOBIN A1c 4.8 % (4.0-6.0)
[2024-07-20 11:43] LABS: ALBUMIN 4.1 G/DL (3.2-5.2); ALKALINE PHOSPHATASE 113 U/L (35-104); ALT/SGPT 18 U/L (7.0-40); AST/SGOT 17 U/L (<34); BILIRUBIN,TOTAL 0.6 MG/DL (0.3-1.2); BLOOD UREA NITROGEN 10 MG/DL (9-23); CALCIUM LEVEL 10.1 MG/DL (8.3-10.6); CARBON DIOXIDE LEVEL 28 MMOL/L (20-31); CHLORIDE LEVEL 102 MMOL/L (98-107); CHOLESTEROL LEVEL 210 MG/DL (<200); CHOLESTEROL RISK RATIO 4.23 (<5); CREATININE FOR GFR 0.81 MG/DL (0.55-1.30); GLOMERULAR FILTRATION RATE > 60.0 (>45); GLUCOSE, FASTING 82 MG/DL (74-106); HDL CHOLESTEROL 49.6 MG/DL (>40); LDL CHOLESTEROL 126.2 MG/DL (<100); NON-HDL-C 160.4 MG/DL; POTASSIUM SERUM 3.9 MMOL/L (3.5-5.1); SODIUM LEVEL 138 MMOL/L (136-145); TOTAL PROTEIN 7.9 G/DL (5.7-8.2); TRIGLYCERIDES LEVEL 171 MG/DL (<150)
[2024-07-20 11:47] LABS: TOTAL 25(OH) VITAMIN D 76.8 NG/ML (20.0-100.0)
== END ==
LOC: M LAB 10:27
PROVIDERS: ATTEND Physician Assistant
DX: E78.2 Mixed hyperlipidemia (principal)

== ENCOUNTER → 2025-01-19 | Outpatient (CLI) | payer MEDICARE, OTHER ==
[2025-01-19 16:08] LABS: BASO # 0.1 10^3/uL (0.0-0.2); BASO % 0.7 % (0.0-1.0); EOS # 0.1 10^3/uL (0.0-0.5); EOS % 1.5 % (0.0-3.0); LYMPH # 2.8 10^3/uL (1.5-5.0); LYMPH % 30.2 % (24.0-44.0); MONO # 0.6 10^3/uL (0.0-0.8); MONO % 6.1 % (2.0-8.0); NEUTROPHILS # 5.6 10^3/uL (1.5-8.5); NEUTROPHILS % 61.3 % (36.0-66.0); PLATELET COUNT, AUTOMATED 401 10^3/uL (150-450)
[2025-01-19 16:40] LABS: ALT/SGPT 18.0 U/L (7.0-40); AST/SGOT 23.0 U/L (<34); CALCIUM LEVEL 9.9 MG/DL (8.3-10.6); CARBON DIOXIDE LEVEL 28.0 MMOL/L (20-31); CHLORIDE LEVEL 95.0 MMOL/L (98-107); CHOLESTEROL LEVEL 194.0 MG/DL (<200); CHOLESTEROL RISK RATIO 3.39 (<5); CREATININE FOR GFR 0.84 MG/DL (0.55-1.30); GLOMERULAR FILTRATION RATE 77.1 (>45); LDL CHOLESTEROL 118.6 MG/DL (<100); NON-HDL-C 136.8 MG/DL; POTASSIUM SERUM 3.9 MMOL/L (3.5-5.1); SODIUM LEVEL 132.0 MMOL/L (136-145); TRIGLYCERIDES LEVEL 91.0 MG/DL (<150)
[2025-01-19 16:42] LABS: TOTAL 25(OH) VITAMIN D 44.5 NG/ML (20.0-100.0)
[2025-01-19 16:43] LABS: FREE T4 1.25 NG/DL (0.89-1.76)
== END ==
LOC: M LAB 14:48
PROVIDERS: ATTEND Physician Assistant
DX: E78.2 Mixed hyperlipidemia (principal); E55.9 Vitamin D deficiency, unspecified; I10 Essential (primary) hypertension